=== PATIENT | female | born 1970 | race African-American/Black ===

== ENCOUNTER 2017-06-23 17:45 | Emergency (ER) | payer MEDICAID ==
[~2017-06-23] VITALS: Ht 160 cm; Wt 50.5 kg
[~2017-06-23 17:45] MED LIST: TRAM50TA2 PO
[2017-06-23 18:03] VITALS: Ht 160 cm; Wt 50.5 kg
[2017-06-23 18:34] VITALS: TEMP 98.4
[2017-06-23] MEDS ORDERED: morphine 4 MG/ML VIAL IV STA ×2 (19:16→23:51)
[2017-06-23] MEDS ORDERED: SOD CHLORIDE 0.9% 1,000 ML IV STA (19:16)
[2017-06-23] MEDS ORDERED: ONDANSETRON 4 MG INJ IV STA (19:16)
[2017-06-23 19:37] LABS: BASOPHIL # 0.1 10^3/ul (0.0-0.1); EOSINOPHILS # 0.1 10^3/ul (0.0-0.5); EOSINOPHILS % 2.5 % (0.0-7.0); HEMOGLOBIN 11.9 g/dl (12.0-16.0); LYMPHOCYTES % 38.1 % (15.0-51.0); MEAN CORPUSCULAR HEMOGLOBIN 29.2 pg (29.0-33.0); MEAN CORPUSCULAR HGB CONC 33.1 g/dl (32.0-37.0); MEAN CORPUSCULAR VOLUME 88.5 fl (82.0-101.0); MEAN PLATELET VOLUME 11.8 fl (7.4-10.4); MONOCYTE # 0.6 10^3/ul (0.3-0.9); MONOCYTES % 12.1 % (0.0-11.0); NEUTROPHILS % 45.9 % (39.0-77.0); PLATELET COUNT 180 10^3/UL (140-415); RED BLOOD COUNT 4.07 10^6/ul (4.20-5.40); WHITE BLOOD COUNT 5.2 10^3/ul (4.8-10.8)
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
[2017-06-23 20:01] LABS: ALBUMIN 4.1 g/dl (3.3-4.9); ALBUMIN/GLOBULIN RATIO 1.2; BILIRUBIN,INDIRECT 0.4 mg/dl (0-1.1); BILIRUBIN,TOTAL 0.4 mg/dl (0.2-1.3); CALCIUM 9.2 mg/dl (8.4-10.2); CREATININE 1.57 mg/dl (0.44-1.00); POTASSIUM 3.4 mmol/L (3.5-5.1); TOTAL PROTEIN 7.5 g/dl (6.1-8.1)
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
[2017-06-23] MEDS ORDERED: LOSA25TA5 PO (20:49)
[2017-06-23] MEDS ORDERED: AMLO5TAB4 PO (20:49)
[2017-06-23] MEDS ORDERED: HYD25 PO (20:50)
[2017-06-23] MEDS ORDERED: QUET100T PO (20:51)
[2017-06-23] MEDS ORDERED: LABETALOL HCL 20MG INJ IV ONE (21:00)
[2017-06-23 22:15] LABS: ADD UMIC YES; UR ASCORBIC ACID NEGATIVE (NEGATIVE); UR BILIRUBIN (Dip) NEGATIVE (NEGATIVE); UR BLOOD (Dip) 3+ mg/dL (NEGATIVE); UR CLARITY SLIGHTLY CLOUDY (CLEAR); UR COLOR YELLOW (YELLOW); UR GLUCOSE (Dip) 1+ mg/dL (NEGATIVE); UR KETONES (Dip) NEGATIVE (NEGATIVE); UR LEUKOCYTE ESTERASE (Dip) 1+ Leu/ul (NEGATIVE); UR NITRITE (Dip) NEGATIVE (NEGATIVE); UR RBC 59 /HPF (0-5); UR SPECIFIC GRAVITY (Dip) 1.024 (1.003-1.030); UR TOTAL PROTEIN (Dip) 1+ mg/dl (NEGATIVE); UR UROBILINOGEN (Dip) NEGATIVE (NEGATIVE)
[2017-06-23] MEDS ORDERED: morphine 10 MG INJ IV ONE (22:30)
[2017-06-23] MEDS ORDERED: CEFTRIAXONE 1 GM/50 ML (PMX) 50 ML IVPB ONE (22:30)
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
[2017-06-24 00:30] VITALS: BP 218/122; PULSE 54; RESP 13
== END 2017-06-24 00:47 | disposition short-term general hospital (02) ==
LOC: E/R 17:45
DX: N83.511 Torsion of right ovary and ovarian pedicle (principal); N39.0 Urinary tract infection, site not specified; F17.210 Nicotine dependence, cigarettes, uncomplicated; I10 Essential (primary) hypertension; R10.31 Right lower quadrant pain; R10.32 Left lower quadrant pain; R10.2 Pelvic and perineal pain
CPT/HCPCS: 36415; 76705; 76856; 80053; 81001; 83690; 85025; 96374; 96375; 96376; J0696; J2270; J2405; J7030; Z7502; Z7610

== ENCOUNTER 2018-08-11 03:57 | Inpatient (IN) | END 2018-08-12 10:15 | disposition left against medical advice (07) | DRG 280 ==